=== PATIENT | female | born 1935 | race Caucasian/White ===

== ENCOUNTER 2024-08-13 11:46 | Emergency (ER) | payer OTHER, SELFPAY ==
[2024-08-13 12:06] VITALS: BP 113/56; PULSE 73; RESP 17; TEMP 36.8; O2SAT 96; BMI 27.6
--- NOTE | 2024-08-13 12:16 | XR_ITS ---
Examination: AP chest single view Technique one AP portable upright chest single view Exam date and time: June 15, 2024 1318 hours INDICATIONS: Chest pain today. FINDINGS: 6 mm pulmonary nodule left midlung Normal heart size No pneumonia or pulmonary edema Fracture right seventh rib posterior laterally which may be old, clinical correlation advised IMPRESSION: No pneumonia or pulmonary edema Fracture right seventh rib posteriorly which may be old, clinical correlation advised In the absence of prior chest films recommend 3 month follow-up AP chest to document stability of 6 mm pulmonary nodule left midlung
--- NOTE | 2024-08-13 12:18 | EDNOTE_ITS ---
ED Chest Pain RME/HPI General Chief Complaint: Chest Pain Stated Complaint: CHEST PAIN, LABORED BREATHING Time Seen by Provider: 08/13/24 12:01 Arrival date/time: 08/13/24 11:46 RME / HPI RME / HPI narrative: 89-year-old female patient was brought in by family for evaluation regarding shortness of breath. Onset of symptoms for the last several days as worsening shortness of breath, chest pain, comes and goes, cough, severity moderate. Patient also noticed shortness of breath and labored breathing after activity. Denies any vomiting denies any blood in the stool denies any other complaints or medications taken prior travel. Related Data Allergies Allergy/AdvReac Type Severity Reaction Status Date / Time codeine Allergy ITCHY Verified 08/13/24 11:49 Review of Systems Review of Systems Narrative Review of Systems: Review of system reviewed and within normal limits except mentioned in HPI ED Exam Narrative Physical exam: VITAL SIGNS: Reviewed. GENERAL APPEARANCE: Alert and interactive, follows commands, no acute distress, HEAD AND FACE: Non-traumatic. ENT: PERRL, pale conjunctiva, eyelid no trauma, Mucous membrane moist. NECK: Supple, nontender, no nuchal rigidity. CHEST: No tenderness, no crepitus, no paradoxical movement, no retractions. LUNGS: Clear, well ventilated, symmetric, no rales, no wheezing, no ronchi, no stridor, good breath sounds bilaterally. HEART: Regular rate, regular rhythm, no murmur, no gallops. ABDOMEN: Soft, positive bowel sounds, nondistended, no guarding, nontender, no rebound, no masses, RECTAL: Deferred. GENITAL: Deferred. NEUROLOGICAL: Gross motor function intact sensory function intact, Appropriate for age. MUSCULOSKELETAL: low back nontender, full range of motion. EXTREMITIES: Nontender, full range of motion. SKIN: Color pale, dry, no rash, no lacerations, no abrasions, no contusions. LYMPHATICS: Deferred. Course Quality Measures none Orders Category Date Time Status EKG (ED ONLY) *Do not use* NOW Care 08/13/24 12:18 Completed EKG (ED Only) Stat Exams 08/13/24 12:17 Ordered XR chest 1V Stat Exams 08/13/24 12:16 Completed B-Type Natriuretic Peptide Stat Lab 08/13/24 12:36 Completed CBC Stat Lab 08/13/24 12:36 Completed Comprehensive Metabolic Panel Stat Lab 08/13/24 12:36 Completed Partial Thromboplastin Time Stat Lab 08/13/24 12:36 Completed Prothrombin Time with INR Stat Lab 08/13/24 12:36 Completed Troponin I Stat Lab 08/13/24 12:36 Completed Urinalysis, C/S if Indicated Stat Lab 08/13/24 13:18 Completed Vital Signs Vital signs: Vital Signs Temperature 98.2 F 08/13/24 12:06 Pulse Rate 73 08/13/24 12:06 Respiratory Rate 17 08/13/24 12:06 Blood Pressure 113/56 L 08/13/24 12:06 Pulse Oximetry (%) 96 08/13/24 12:06 Oxygen Delivery Method Room Air 08/13/24 12:06 Chest Pain MDM Narrative MDM Narrative:: 89-year-old female patient was brought in by family for evaluation regarding shortness of breath. Onset of symptoms for the last several days as worsening shortness of breath, chest pain, comes and goes, cough, severity moderate. Patient also noticed shortness of breath and labored breathing after activity. Denies any vomiting denies any blood in the stool denies any other complaints or medications taken prior travel. EKG shows sinus rhythm, ventricular rate of 66 bpm, no ST segment elevation depression noted. Patient's workup today all came back unremarkable. Including x-ray which showed no infiltrates except for pulmonary nodule. Patient was given a copy of her chest x-ray and advised her to closely follow-up with her PCP. Currently patient was noted to be satting 99% on room air Patient data External records reviewed:: None Clinical information provided by:: patient Social determinants that could affect healthcare access:: none Patient has the following chronic illnesses:: None How is presenting disease/condition affected by chronic disease/condition?: no chronic disease Evaluation data The following diagnostics were reviewed and interpreted by me:: lab results, radiology exam(s) and EKG tracing(s) Lab and/or radiology exams considered but not ordered:: None Interpretation Summary: EKG shows sinus rhythm, ventricular rate of 66 bpm, nonspecific with elevation depression noted. Patient's workup today all came back unremarkable. Including x-ray which showed no infiltrates except for pulmonary nodule. Patient was given a copy of her chest x-ray and advised her to closely follow-up with her PCP. Medications / Prescriptions Medications or Prescriptions considered but not ordered:: None Medication administrations:: None Consultations Consultation(s) initiated? (list below): No Diagnosis Chest Pain Differential Diagnosis: chest pain and other (Shortness of breath, pneumonia) Most likely diagnosis given after review of the tests above:: Shortness of breath, Admission Indicated Admission indicated?: not indicated Admission Request Was there a request for admission?: No Disposition Plan Disposition Plan: Discharge Discharge Attestation Discharge Attestation: The patient and all family members were given an opportunity to ask questions and understood the discharge instructions. Discharge instructions specifically effects, indications for sooner follow up or return to the emergency department, and the expected course of current diagnosis. Patient condition: Stable Discharge Plan Plan Patient Disposition: HOME (Self Care) Disposition Comment: Stable Prescriptions/Referrals Referrals: No Primary/Family,Physician [Primary Care Provider] - In 1 week Problem List Clinical Impression: Shortness of breath Patient/Caregiver Discharge Instructions Discharge Activity: activity as tolerated Education Materials: Shortness of Breath Coping Additional Instructions: Thank you for the opportunity for serving you today. You are stable for discharged . You are advised to: Follow-up with your PCP in 1 to 2 days Return to ED for worsening of symptoms Print Language: Turkmen Stand Alone Forms: Cristine Award Info., Patient Portal Info Letter
[2024-08-13 12:54] LABS: Basophils # (Auto) 0.1 Thou/mm3 (0.0-0.2); Basophils % (Auto) 1 % (0-2.5); Eosinophils # (Auto) 0.3 Thou/mm3 (0.0-0.5); Eosinophils % (Auto) 3 % (0-10); Hematocrit 33.6 % (36.0-46.0); Hemoglobin 11.4 g/dL (12.0-16.0); Immature Granulocytes % (Auto) 0 % (0-0); Immature Granulocytes Auto 0.02 Thou/mm3 (0.00-0.00); Lymphocytes # (Auto) 2.9 Thou/mm3 (1.0-4.8); Lymphocytes % (Auto) 37 % (10-50); Mean Corpuscular HGB Conc 33.9 g/dl (31.0-37.0); Mean Corpuscular Hemoglobin 31.1 pg (25.0-35.0); Mean Corpuscular Volume 92 fL (80-100); Monocytes # (Auto) 0.6 Thou/mm3 (0.0-0.8); Monocytes % (Auto) 8 % (0-12); Neutrophils % (Auto) 51 % (37-80); Nucleated Red Blood Cell % 0 /100 WBC (0); Platelet Count 217 Thou/mm3 (140-440); RDW Standard Deviation 41.9 fL (36.4-46.3); Red Blood Count 3.67 Miln/mm3 (4.00-5.20); White Blood Count 7.9 Thou/mm3 (3.6-11.0)
[2024-08-13 13:13] LABS: Partial Thromboplastin Time 23.8 Seconds (22.0-36.0)
[2024-08-13 13:23] LABS: B-Type Natriuretic Peptide 36 pg/mL (0-100)
[2024-08-13 13:29] VITALS: BP 134/65; PULSE 68; RESP 17; TEMP 36.6; O2SAT 99
[2024-08-13 13:49] LABS: Alanine Aminotransferase < 7 U/L (10-49); Albumin, Serum 4.1 gm/dL (3.4-4.8); Albumin/Globulin Ratio 1.6 (1.2-2.2); Alkaline Phosphatase 116 U/L (46-116); Anion Gap 11 (7-16); Aspartate Amino Transferase 14 U/L (0-34); BUN/Creatinine Ratio 15 Ratio (12-20); Bilirubin,Total 0.4 mg/dL (0.3-1.2); Blood Urea Nitrogen 17 mg/dL (9-23); Calcium 9.8 mg/dL (8.3-10.6); Calcium (Corrected) 9.8 mg/dL (8.5-10.1); Carbon Dioxide 25.3 mMol/L (20.0-31.0); Chloride 100 mMol/L (98-107); Creatinine (Component) 1.1 mg/dL (0.6-1.3); Estimated Creatinine Clearance 33.3 mL/min (>60); Globulin 2.5 gm/dL (2.3-3.5); Glucose 106 mg/dL (74-106); Osmolality,Calculated 273 (275-295); Potassium 3.7 mMol/L (3.4-5.1); Sodium 136 mMol/L (136-145); Total Protein 6.6 gm/dL (5.7-8.2); Troponin I < 0.020 ng/mL (0.0-0.045); eGFR 48 See Note
[2024-08-13 13:53] LABS: Collection Type, Urine Clean Catch
[2024-08-13 14:13] LABS: Bilirubin,Urine Negative (Negative); Blood,Urine Negative (Negative); Clarity,Urine Clear (Clear/Hazy); Color,Urine Lt-Yellow (Lt Yel-Yel); Culture Indicated,Urine Not Indicated; Glucose, Urine Negative (Negative); Ketones,Urine Negative (Negative); Leukocyte Esterase,Urine Positive (Negative); Nitrite,Urine Negative (Negative); Protein,Urine Negative (Neg - Trace); RBC,Urine 2 /hpf (0-3); Specific Gravity,Urine 1.016 (1.001-1.035); Squamous Epithelial Cell,Urine 2 /hpf (0-5); Urobilinogen,Urine Negative mg/dL (0.0-1.0); WBC,Urine 5 /hpf (0-5)
== END 2024-08-13 15:54 | disposition home or self-care (01) ==
PROVIDERS: Nurse Practitioner Family; Emergency Provider Emergency Medicine
DX: R06.02 Shortness of breath (principal); R07.9 Chest pain, unspecified
CPT/HCPCS: 36415; 71045; 80053; 81001; 83880; 84484; 85025; 85610; 85730; 93005; 99283